=== PATIENT | male | born 1995 | race Caucasian/White ===

== ENCOUNTER → 2020-01-03 | Outpatient (CLI) | payer BC | LOC: RAD 11:51 | DX: N50.89 Other specified disorders of the male genital organs (principal) ==

== ENCOUNTER 2020-01-04 18:54 | Emergency (ER) | payer BC ==
[~2020-01-04] VITALS: Ht 180.3 cm; Wt 88.6 kg
[2020-01-04 19:37] LABS: EOS # 0.1 (0.04-0.40); EOS % 1.5 % (0.0-4.0); HEMATOCRIT 44.9 % (42.0-52.0); HEMOGLOBIN 15.6 g/dL (13.5-18.0); LYMPH# 2.9 (1.50-4.00); MEAN CELL VOLUME 89 fl (78-100); MEAN CORPUSCULAR HEMOGLOBIN 31 pg (27-31); MEAN CORPUSCULAR HGB CONC 35 g/dL (33-37); MEAN PLATELET VOLUME 10.1 fl (7.4-10.4); MONO # 0.8 (0.20-0.80); NEU # 5.4 (1.40-6.50); PLATELET COUNT 184 K/mm3 (130-400); RED BLOOD COUNT 5.03 M/mm3 (4.20-5.60); RED CELL DISTRIBUTION WIDTH 13.5 % (11.5-14.5); WHITE BLOOD COUNT 9.2 K/mm3 (4.8-10.8)
[2020-01-04 19:44] LABS: POTASSIUM 3.6 mmol/L (3.5-5.1)
[2020-01-04 19:45] LABS: CALCIUM 8.8 mg/dL (8.3-10.5)
[2020-01-04 19:47] LABS: TOTAL PROTEIN 6.6 g/dL (6.4-8.3)
[2020-01-04 19:48] LABS: TOTAL BILIRUBIN 0.3 mg/dL (0.2-1.2)
[2020-01-04 19:58] LABS: D-DIMER 0.13 mg/L FEU (0.15-0.50)
[2020-01-04 20:12] LABS: URINE APPEARANCE CLEAR; URINE BILIRUBIN NEGATIVE (NEGATIVE); URINE BLOOD NEGATIVE (NEGATIVE); URINE COLOR YELLOW; URINE GLUCOSE NEGATIVE (NEGATIVE); URINE KETONE NEGATIVE (NEGATIVE); URINE LEUKOCYTE ESTERASE NEGATIVE (NEGATIVE); URINE NITRATE NEGATIVE (NEGATIVE); URINE PROTEIN(semi-quant) NEGATIVE (NEGATIVE); URINE UROBILINOGEN NORMAL (NORMAL); URINE WBC 0-1 /hpf (0-3)
[2020-01-04 21:25] VITALS: BP 144/85
== END 2020-01-04 21:27 | disposition home or self-care (01) ==
LOC: ED 18:54
PROVIDERS: Nurse Practitioner
DX: F41.9 Anxiety disorder, unspecified (principal); R07.89 Other chest pain
CPT/HCPCS: J7030

== ENCOUNTER → 2020-01-10 | Outpatient (CLI) | payer BC ==
[2020-01-04 21:25] VITALS: BP 144/85
== END ==
LOC: LAB 09:46
DX: C62.11 Malignant neoplasm of descended right testis (principal)

== ENCOUNTER → 2020-01-15 | Outpatient (CLI) | payer BC ==
[2020-01-04 21:25] VITALS: BP 144/85
== END ==
LOC: LAB 16:15
DX: C62.11 Malignant neoplasm of descended right testis (principal)

== ENCOUNTER → 2020-01-22 | Outpatient (CLI) | payer BC ==
[2020-01-04 21:25] VITALS: BP 144/85
== END ==
LOC: LAB 12:21
DX: C62.11 Malignant neoplasm of descended right testis (principal)

== ENCOUNTER → 2020-01-29 | Outpatient (CLI) | payer BC ==
[2020-01-04 21:25] VITALS: BP 144/85
== END ==
LOC: LAB 11:23
DX: C62.11 Malignant neoplasm of descended right testis (principal)

== ENCOUNTER → 2020-02-05 | Outpatient (CLI) | payer BC | LOC: LAB 14:46 | DX: C62.11 Malignant neoplasm of descended right testis (principal) ==

== ENCOUNTER → 2020-02-12 | Outpatient (CLI) | payer BC | LOC: LAB 14:20 | DX: C62.11 Malignant neoplasm of descended right testis (principal) ==

== ENCOUNTER → 2020-02-17 | Outpatient (CLI) | payer BC | LOC: LAB 08:09 | DX: C62.11 Malignant neoplasm of descended right testis (principal) ==

== ENCOUNTER → 2020-03-14 | Outpatient (CLI) | payer BC | LOC: LAB 11:39 | DX: C62.11 Malignant neoplasm of descended right testis (principal) ==

== ENCOUNTER → 2020-04-17 | Outpatient (CLI) | payer BC ==
[2020-04-17 11:58] LABS: ALBUMIN 4.5 g/dL (3.5-5.0); POTASSIUM 4.2 mmol/L (3.5-5.1); SODIUM 140 mmol/L (136-145)
[2020-04-17 11:59] LABS: CALCIUM 9.1 mg/dL (8.3-10.5)
[2020-04-17 12:00] LABS: EOS # 0.1 (0.04-0.40); EOS % 1.5 % (0.0-4.0); GLUCOSE 94 mg/dL (75-110); HEMATOCRIT 43.3 % (42.0-52.0); HEMOGLOBIN 15.2 g/dL (13.5-18.0); LYMPH# 1.7 (1.50-4.00); MEAN CELL VOLUME 90 fl (78-100); MEAN CORPUSCULAR HEMOGLOBIN 31 pg (27-31); MEAN CORPUSCULAR HGB CONC 35 g/dL (33-37); MEAN PLATELET VOLUME 10.3 fl (7.4-10.4); MONO # 0.6 (0.20-0.80); NEU # 2.9 (1.40-6.50); PLATELET COUNT 191 K/mm3 (130-400); RED BLOOD COUNT 4.84 M/mm3 (4.20-5.60); RED CELL DISTRIBUTION WIDTH 12.3 % (11.5-14.5); TOTAL PROTEIN 7.1 g/dL (6.4-8.3); WHITE BLOOD COUNT 5.3 K/mm3 (4.8-10.8)
[2020-04-17 12:02] LABS: CARBON DIOXIDE 24 mmol/L (22-29); TOTAL BILIRUBIN 0.4 mg/dL (0.2-1.2)
[2020-04-17 12:06] LABS: AST-SGOT 30 U/L (5-34)
[2020-04-17 12:07] LABS: ALT/SGPT 29 U/L (0-55)
== END ==
LOC: LAB 11:32
PROVIDERS: Family Medicine
DX: C62.11 Malignant neoplasm of descended right testis (principal)

== ENCOUNTER → 2020-06-27 | Outpatient (CLI) | payer BC | LOC: LAB 12:38 | DX: Z01.89 Encounter for other specified special examinations (principal) ==

== ENCOUNTER → 2020-06-28 | Outpatient (CLI) | payer BC | LOC: LAB 16:23 | DX: J06.9 Acute upper respiratory infection, unspecified (principal); Z20.828 Contact with and (suspected) exposure to other viral communicable diseases ==

== ENCOUNTER → 2020-07-02 | Outpatient (CLI) | payer BC | LOC: LAB 07:26 | DX: R06.00 Dyspnea, unspecified (principal); Z20.828 Contact with and (suspected) exposure to other viral communicable diseases ==

== ENCOUNTER → 2020-10-04 | Outpatient (CLI) | payer BC ==
[2020-10-04 09:26] LABS: EOS # 0.1 (0.04-0.40); EOS % 1.7 % (0.0-4.0); HEMATOCRIT 45.3 % (42.0-52.0); HEMOGLOBIN 15.3 g/dL (13.5-18.0); LYMPH# 2.1 (1.50-4.00); MEAN CELL VOLUME 89 fl (78-100); MEAN CORPUSCULAR HEMOGLOBIN 30 pg (27-31); MEAN CORPUSCULAR HGB CONC 34 g/dL (33-37); MEAN PLATELET VOLUME 9.8 fl (7.4-10.4); MONO # 0.7 (0.20-0.80); NEU # 3.7 (1.40-6.50); PLATELET COUNT 206 K/mm3 (130-400); RED BLOOD COUNT 5.09 M/mm3 (4.20-5.60); RED CELL DISTRIBUTION WIDTH 13.5 % (11.5-14.5); WHITE BLOOD COUNT 6.6 K/mm3 (4.8-10.8)
[2020-10-04 09:34] LABS: ALBUMIN 4.2 g/dL (3.5-5.0); POTASSIUM 5.3 mmol/L (3.5-5.1)
[2020-10-04 09:35] LABS: CALCIUM 9.4 mg/dL (8.3-10.5)
[2020-10-04 09:36] LABS: TOTAL PROTEIN 7.1 g/dL (6.4-8.3)
[2020-10-04 09:38] LABS: TOTAL BILIRUBIN 0.3 mg/dL (0.2-1.2)
== END ==
LOC: LAB 08:53
PROVIDERS: Family Medicine
DX: C62.11 Malignant neoplasm of descended right testis (principal)

== ENCOUNTER → 2020-11-14 | Outpatient (CLI) | payer BC ==
[2020-11-14 07:39] LABS: HEMATOCRIT 47.5 % (42.0-52.0); HEMOGLOBIN 16.2 g/dL (13.5-18.0); MEAN CELL VOLUME 89 fl (78-100); MEAN CORPUSCULAR HEMOGLOBIN 30 pg (27-31); MEAN CORPUSCULAR HGB CONC 34 g/dL (33-37); MEAN PLATELET VOLUME 10.4 fl (7.4-10.4); PLATELET COUNT 178 K/mm3 (130-400); RED BLOOD COUNT 5.35 M/mm3 (4.20-5.60); RED CELL DISTRIBUTION WIDTH 12.8 % (11.5-14.5); WHITE BLOOD COUNT 6.5 K/mm3 (4.8-10.8)
[2020-11-14 07:53] LABS: ALBUMIN 4.2 g/dL (3.5-5.0); POTASSIUM 4.6 mmol/L (3.5-5.1); SODIUM 141 mmol/L (136-145)
[2020-11-14 07:55] LABS: CALCIUM 9.1 mg/dL (8.3-10.5)
[2020-11-14 07:56] LABS: GLUCOSE 124 mg/dL (75-110); TOTAL PROTEIN 7.1 g/dL (6.4-8.3)
[2020-11-14 07:57] LABS: CARBON DIOXIDE 27 mmol/L (22-29)
[2020-11-14 07:58] LABS: TOTAL BILIRUBIN 0.4 mg/dL (0.2-1.2)
[2020-11-14 08:01] LABS: AST-SGOT 27 U/L (5-34)
[2020-11-14 08:02] LABS: ALT/SGPT 26 U/L (0-55)
[2020-11-14 08:07] LABS: LYMPHOCYTE 24 % (20-51); MONOCYTE 10 % (3-10); NEUTROPHILS 63 % (42-75)
== END ==
LOC: LAB 07:27
PROVIDERS: Internal Medicine
DX: C62.11 Malignant neoplasm of descended right testis (principal)

== ENCOUNTER → 2021-01-06 | Outpatient (CLI) | payer BC ==
[2021-01-06 16:16] LABS: BASO # 0.01 (0.02-0.10); EOS # 0.14 (0.04-0.40); EOS % 1.7 % (0.0-4.0); HEMATOCRIT 44.8 % (42.0-52.0); HEMOGLOBIN 15.7 g/dL (13.5-18.0); LYMPH# 2.49 (1.50-4.00); MEAN CELL VOLUME 89 fl (78-100); MEAN CORPUSCULAR HEMOGLOBIN 31 pg (27-31); MEAN CORPUSCULAR HGB CONC 35 g/dL (33-37); MEAN PLATELET VOLUME 9.9 fl (7.4-10.4); MONO # 0.72 (0.20-0.80); NEU # 4.67 (1.40-6.50); PLATELET COUNT 190 K/mm3 (130-400); RED BLOOD COUNT 5.06 M/mm3 (4.20-5.60); RED CELL DISTRIBUTION WIDTH 12.2 % (11.5-14.5); WHITE BLOOD COUNT 8.1 K/mm3 (4.8-10.8)
[2021-01-06 16:43] LABS: ALBUMIN 4.5 g/dL (3.5-5.0); POTASSIUM 4.1 mmol/L (3.5-5.1); SODIUM 140 mmol/L (136-145)
[2021-01-06 16:44] LABS: CALCIUM 9.4 mg/dL (8.3-10.5)
[2021-01-06 16:45] LABS: GLUCOSE 99 mg/dL (75-110); TOTAL PROTEIN 7.5 g/dL (6.4-8.3)
[2021-01-06 16:46] LABS: CARBON DIOXIDE 24 mmol/L (22-29)
[2021-01-06 16:47] LABS: TOTAL BILIRUBIN 0.4 mg/dL (0.2-1.2)
[2021-01-06 16:50] LABS: AST-SGOT 23 U/L (5-34)
[2021-01-06 16:52] LABS: ALT/SGPT 37 U/L (0-55)
== END ==
LOC: LAB 16:02
PROVIDERS: Internal Medicine
DX: C62.11 Malignant neoplasm of descended right testis (principal)

== ENCOUNTER → 2021-03-19 | Outpatient (CLI) | payer BC | LOC: LAB 17:26 | DX: Z86.39 Personal history of other endocrine, nutritional and metabolic disease (principal) ==

== ENCOUNTER → 2021-04-02 | Outpatient (CLI) | payer BC ==
[2021-04-02 07:39] LABS: BASO # 0.03 (0.02-0.10); EOS # 0.12 (0.04-0.40); EOS % 1.8 % (0.0-4.0); HEMATOCRIT 47.3 % (42.0-52.0); HEMOGLOBIN 16.2 g/dL (13.5-18.0); MEAN CELL VOLUME 91 fl (78-100); MEAN CORPUSCULAR HEMOGLOBIN 31 pg (27-31); MEAN CORPUSCULAR HGB CONC 34 g/dL (33-37); MEAN PLATELET VOLUME 9.8 fl (7.4-10.4); MONO # 0.75 (0.20-0.80); NEU # 3.42 (1.40-6.50); PLATELET COUNT 169 K/mm3 (130-400); RED BLOOD COUNT 5.19 M/mm3 (4.20-5.60); RED CELL DISTRIBUTION WIDTH 11.8 % (11.5-14.5); WHITE BLOOD COUNT 6.6 K/mm3 (4.8-10.8)
[2021-04-02 07:45] LABS: ALBUMIN 4.2 g/dL (3.5-5.0); POTASSIUM 4.5 mmol/L (3.5-5.1); SODIUM 140 mmol/L (136-145)
[2021-04-02 07:47] LABS: CALCIUM 9.5 mg/dL (8.3-10.5)
[2021-04-02 07:48] LABS: GLUCOSE 95 mg/dL (75-110); TOTAL PROTEIN 7.1 g/dL (6.4-8.3)
[2021-04-02 07:49] LABS: CARBON DIOXIDE 25 mmol/L (22-29)
[2021-04-02 07:50] LABS: TOTAL BILIRUBIN 0.5 mg/dL (0.2-1.2)
[2021-04-02 07:53] LABS: AST-SGOT 23 U/L (5-34)
[2021-04-02 07:54] LABS: ALT/SGPT 21 U/L (0-55)
== END ==
LOC: LAB 07:24
PROVIDERS: Internal Medicine
DX: C62.11 Malignant neoplasm of descended right testis (principal)

== ENCOUNTER → 2021-07-14 | Outpatient (CLI) | payer BC ==
[2021-07-14 10:43] LABS: HEMATOCRIT 44.4 % (42.0-52.0); HEMOGLOBIN 15.5 g/dL (13.5-18.0); RED CELL DISTRIBUTION WIDTH 11.7 % (11.5-14.5); WHITE BLOOD COUNT 6.5 K/mm3 (4.8-10.8)
[2021-07-14 10:45] LABS: ALBUMIN 4.3 g/dL (3.5-5.0)
[2021-07-14 10:48] LABS: CARBON DIOXIDE 26 mmol/L (22-29); POTASSIUM 4.2 mmol/L (3.5-5.1); SODIUM 141 mmol/L (136-145)
[2021-07-14 10:49] LABS: CALCIUM 9.6 mg/dL (8.3-10.5); TOTAL BILIRUBIN 0.4 mg/dL (0.2-1.2)
[2021-07-14 10:50] LABS: GLUCOSE 84 mg/dL (75-110)
[2021-07-14 10:53] LABS: AST-SGOT 22 U/L (5-34)
[2021-07-14 10:54] LABS: ALT/SGPT 34 U/L (0-55)
== END ==
LOC: LAB 09:45
PROVIDERS: Internal Medicine
DX: Z01.89 Encounter for other specified special examinations (principal)

== ENCOUNTER → 2021-10-24 | Outpatient (CLI) | payer BC ==
[2021-10-24 07:37] LABS: BASO # 0.01 K/mm3 (0.02-0.10); EOS % 2.2 % (0.0-4.0); HEMATOCRIT 45.6 % (42.0-52.0); HEMOGLOBIN 15.5 g/dL (13.5-18.0); LYMPH# 1.87 K/mm3 (1.50-4.00); MEAN CELL VOLUME 90 fl (78-100); MEAN CORPUSCULAR HEMOGLOBIN 31 pg (27-31); MEAN CORPUSCULAR HGB CONC 34 g/dL (33-37); MEAN PLATELET VOLUME 9.8 fl (7.4-10.4); MONO # 0.56 K/mm3 (0.20-0.80); NEU # 2.03 K/mm3 (1.40-6.50); PLATELET COUNT 169 K/mm3 (130-400); RED BLOOD COUNT 5.07 M/mm3 (4.20-5.60); RED CELL DISTRIBUTION WIDTH 12.3 % (11.5-14.5); WHITE BLOOD COUNT 4.6 K/mm3 (4.8-10.8)
[2021-10-24 07:50] LABS: ALBUMIN 4.3 g/dL (3.5-5.0); POTASSIUM 4.4 mmol/L (3.5-5.1); SODIUM 142 mmol/L (136-145)
[2021-10-24 07:52] LABS: CALCIUM 9.2 mg/dL (8.3-10.5)
[2021-10-24 07:53] LABS: GLUCOSE 93 mg/dL (75-110); TOTAL PROTEIN 6.9 g/dL (6.4-8.3)
[2021-10-24 07:54] LABS: CARBON DIOXIDE 26 mmol/L (22-29)
[2021-10-24 07:55] LABS: TOTAL BILIRUBIN 0.6 mg/dL (0.2-1.2)
[2021-10-24 07:58] LABS: AST-SGOT 22 U/L (5-34)
[2021-10-24 07:59] LABS: ALT/SGPT 23 U/L (0-55)
== END ==
LOC: LAB 07:04
PROVIDERS: Family Medicine
DX: C62.11 Malignant neoplasm of descended right testis (principal)

== ENCOUNTER → 2022-02-05 | Outpatient (CLI) | payer BC ==
[2022-02-05 13:04] LABS: HEMOGLOBIN 14.8 g/dL (13.5-18.0); MEAN PLATELET VOLUME 9.7 fl (7.4-10.4); RED BLOOD COUNT 4.83 M/mm3 (4.20-5.60); RED CELL DISTRIBUTION WIDTH 12.4 % (11.5-14.5); WHITE BLOOD COUNT 6.4 K/mm3 (4.8-10.8)
[2022-02-05 13:15] LABS: ALBUMIN 4.2 g/dL (3.5-5.0)
[2022-02-05 13:16] LABS: POTASSIUM 4.2 mmol/L (3.5-5.1); SODIUM 142 mmol/L (136-145)
[2022-02-05 13:17] LABS: CALCIUM 9.4 mg/dL (8.3-10.5)
[2022-02-05 13:18] LABS: GLUCOSE 92 mg/dL (75-110); TOTAL PROTEIN 6.9 g/dL (6.4-8.3)
[2022-02-05 13:19] LABS: CARBON DIOXIDE 25 mmol/L (22-29)
[2022-02-05 13:20] LABS: TOTAL BILIRUBIN 0.5 mg/dL (0.2-1.2)
[2022-02-05 13:24] LABS: AST-SGOT 37 U/L (5-34)
[2022-02-05 13:25] LABS: ALT/SGPT 27 U/L (0-55)
== END ==
LOC: LAB 12:53
PROVIDERS: Internal Medicine
DX: Z01.89 Encounter for other specified special examinations (principal)

== ENCOUNTER → 2022-02-09 | Outpatient (CLI) | payer BC | LOC: RAD 10:51 | DX: C62.11 Malignant neoplasm of descended right testis (principal); Z90.79 Acquired absence of other genital organ(s); Z98.890 Other specified postprocedural states | CPT/HCPCS: Q9967 ==

== ENCOUNTER → 2022-03-16 | Outpatient (CLI) | payer BC | LOC: LAB 12:30 | DX: F41.1 Generalized anxiety disorder (principal); G47.09 Other insomnia; Z86.39 Personal history of other endocrine, nutritional and metabolic disease ==

== ENCOUNTER → 2024-09-22 | Outpatient (CLI) | payer OTHER ==
[2024-09-22 09:27] LABS: BASO # 0.03 K/mm3 (0.02-0.10); EOS # 0.07 K/mm3 (0.04-0.40); EOS % 1.1 % (0.0-4.0); HEMATOCRIT 45.1 % (42.0-52.0); HEMOGLOBIN 15.7 g/dL (13.5-18.0); LYMPH# 1.47 K/mm3 (1.50-4.00); MEAN CELL VOLUME 89 fl (78-100); MEAN CORPUSCULAR HEMOGLOBIN 31 pg (27-31); MEAN CORPUSCULAR HGB CONC 35 g/dL (33-37); MEAN PLATELET VOLUME 9.8 fl (7.4-10.4); MONO # 0.56 K/mm3 (0.20-0.80); NEU # 4.47 K/mm3 (1.40-6.50); PLATELET COUNT 178 K/mm3 (130-400); RED BLOOD COUNT 5.09 M/mm3 (4.20-5.60); RED CELL DISTRIBUTION WIDTH 11.9 % (11.5-14.5); WHITE BLOOD COUNT 6.6 K/mm3 (4.8-10.8)
[2024-09-22 09:30] LABS: ALBUMIN 4.4 g/dL (3.5-5.0)
[2024-09-22 09:32] LABS: CALCIUM 9.5 mg/dL (8.3-10.5)
[2024-09-22 09:33] LABS: TOTAL PROTEIN 7.4 g/dL (6.4-8.3)
[2024-09-22 09:35] LABS: TOTAL BILIRUBIN 0.3 mg/dL (0.2-1.2)
== END ==
LOC: LAB 09:00
PROVIDERS: Nurse Practitioner
DX: R10.9 Unspecified abdominal pain (principal)